=== PATIENT | female | born 1940 | race Two or more races ===

== ENCOUNTER 2022-12-13 17:40 | Emergency (ER) | payer OTHER, BC ==
[~2022-12-13] VITALS: Ht 165.1 cm; Wt 50.8 kg
[2022-12-13] MEDS ORDERED: AZELASTINE HCL6 ML OTIC (17:50)
[2022-12-13] MEDS ORDERED: LEVOTHYROXINE13 MCG PO (17:51)
[2022-12-13] MEDS ORDERED: EZALLOR SPRINKLE5 MG PO (17:51)
[2022-12-13] MEDS ORDERED: POTASSIUM CITR10 MEQ PO (17:51)
[2022-12-13] MEDS ORDERED: RESTASIS1 EACH OP (17:52)
[2022-12-13] MEDS ORDERED: METAFOLBIC PLU1 EACH PO (17:52)
[2022-12-13] MEDS ORDERED: LODOSYN25 MG PO (17:52)
== END 2022-12-13 20:09 | disposition home or self-care (01) ==
LOC: ER 17:40
DX: S09.90XA Unspecified injury of head, initial encounter (principal); M25.561 Pain in right knee; W17.89XA Other fall from one level to another, initial encounter; Y93.E1 Activity, personal bathing and showering; Y92.012 Bathroom of single-family (private) house as the place of occurrence of the external cause; Y99.9 Unspecified external cause status